=== PATIENT | male | born 1955 | race Caucasian/White ===

== ENCOUNTER 2016-09-02 11:03 | Outpatient (CLI) | payer BC | END 2016-09-02 11:04 | disposition home or self-care (01) | DX: E03.9 Hypothyroidism, unspecified (principal); E78.2 Mixed hyperlipidemia; Z79.899 Other long term (current) drug therapy ==

== ENCOUNTER 2017-09-25 08:00 | Outpatient (CLI) | payer BC, OTHER ==
[2017-09-25 15:12] LABS: BASOPHILS % (AUTO) 0.3 %; EOSINOPHILS # (AUTO) 0.1 10^3/uL (0.0-0.7); EOSINOPHILS % (AUTO) 1.6 %; HGB - HEMOGLOBIN 14.4 g/dL (14.0-18.0); LYMPHOCYTES # (AUTO) 1.3 10^3/uL (1.5-3.5); LYMPHOCYTES % (AUTO) 27.2 %; MEAN CORPUSCULAR HEMOGLOBIN 30.4 pg (27.0-31.0); MEAN CORPUSCULAR HGB CONC 34.5 g/dL (32.0-36.0); MEAN PLATELET VOLUME 8.2 fL (7.4-11.4); MONOCYTES # (AUTO) 0.5 10^3/uL (0.0-1.0); MONOCYTES % (AUTO) 10.7 %; NEUTROPHILS # (AUTO) 2.9 10^3/uL (1.5-6.6); NEUTROPHILS % (AUTO) 60.2 %; PLT - PLATELET COUNT 274 10^3/uL (130-450); RED BLOOD COUNT 4.72 10^6/uL (4.70-6.10); RED CELL DISTRIBUTION WIDTH 14.1 % (12.0-15.0); WHITE BLOOD COUNT 4.8 x10^3/uL (4.8-10.8)
[2017-09-25 15:25] LABS: ALBUMIN 4.6 g/dL (3.2-5.5); ALBUMIN/GLOBULIN RATIO 1.7 (1.0-2.2); ALKALINE PHOSPHATASE 80 IU/L (42-121); ALT ALANINE AMINOTRANSFERASE 45 IU/L (10-60); AST ASPARTATE AMINOTRANSFERASE 35 IU/L (10-42); BILIRUBIN,TOTAL 0.7 mg/dL (0.2-1.0); BUN - BLOOD UREA NITROGEN 12 mg/dL (6-20); CALCIUM 9.2 mg/dL (8.5-10.3); CARBON DIOXIDE - CO2 29 mmol/L (21-32); CHLORIDE 98 mmol/L (101-111); CHOL/HDL RATIO 3.4 (<5.0); CHOLESTEROL 191 mg/dL; CREATININE 0.7 mg/dL (0.6-1.2); GFR - MDRD 114 (>89); GLUCOSE 93 mg/dL (70-100); HDL CHOLESTEROL 57 mg/dL; LDL CHOLESTEROL,CALCULATED 116 mg/dL; SODIUM 135 mmol/L (135-145); TOTAL PROTEIN 7.3 g/dL (6.7-8.2); VLDL CHOLESTEROL 18 mg/dL
[2017-09-25 15:32] LABS: PSA TOTAL 0.61 ng/mL (0.000-2.000)
== END 2017-09-25 08:01 | disposition home or self-care (01) ==
LOC: LAB.R 08:00
PROVIDERS: ATTEND Internal Medicine
DX: E03.9 Hypothyroidism, unspecified (principal); E78.5 Hyperlipidemia, unspecified; R61 Generalized hyperhidrosis; Z12.5 Encounter for screening for malignant neoplasm of prostate; Z79.899 Other long term (current) drug therapy
CPT/HCPCS: 80053; 80061; 81599; 82040; 83721; 84153; 84270; 84403; 84443; 85025

== ENCOUNTER 2017-10-17 08:00 | Outpatient (CLI) | payer OTHER | END 2017-10-17 08:01 | disposition home or self-care (01) | LOC: LAB.R 08:00 | PROVIDERS: ATTEND Internal Medicine | DX: E29.1 Testicular hypofunction (principal) | CPT/HCPCS: 81599; 84402; 84403 ==

== ENCOUNTER 2018-09-28 07:47 | Outpatient (CLI) | payer OTHER ==
[2018-09-28 10:44] LABS: ALBUMIN 4.2 g/dL (3.2-5.5); ALBUMIN/GLOBULIN RATIO 1.6 (1.0-2.2); ALKALINE PHOSPHATASE 76 IU/L (42-121); ALT ALANINE AMINOTRANSFERASE 40 IU/L (10-60); AST ASPARTATE AMINOTRANSFERASE 34 IU/L (10-42); BILIRUBIN,TOTAL 0.8 mg/dL (0.2-1.0); BUN - BLOOD UREA NITROGEN 19 mg/dL (6-20); CALCIUM 9.4 mg/dL (8.5-10.3); CARBON DIOXIDE - CO2 28 mmol/L (21-32); CHLORIDE 102 mmol/L (101-111); CHOL/HDL RATIO 3.6 (<5.0); CHOLESTEROL 182 mg/dL; GFR - MDRD 75 (>89); GLUCOSE 92 mg/dL (70-100); HDL CHOLESTEROL 51 mg/dL; LDL CHOLESTEROL,CALCULATED 112 mg/dL; LDL/HDL RATIO 2.2 (<3.6); SODIUM 138 mmol/L (135-145); TOTAL PROTEIN 6.9 g/dL (6.7-8.2); VLDL CHOLESTEROL 19 mg/dL
== END 2018-09-28 07:48 | disposition home or self-care (01) ==
LOC: LAB.F 07:47
PROVIDERS: ATTEND Internal Medicine
DX: E78.5 Hyperlipidemia, unspecified (principal); Z12.5 Encounter for screening for malignant neoplasm of prostate; E03.9 Hypothyroidism, unspecified
CPT/HCPCS: 36415; 80053; 80061; 83721; 84153; 84443